=== PATIENT | male | born 1980 | race Caucasian/White ===

== ENCOUNTER → 2022-02-21 | Outpatient (REF) | payer OTHER | LOC: M SMT 17:25 | PROVIDERS: ATTEND Urology | DX: Z30.2 Encounter for sterilization (principal) ==

== ENCOUNTER 2022-03-08 09:30 | Day surgery (SDC) | payer OTHER ==
[~2022-03-08] VITALS: Ht 177.8 cm; Wt 85.9 kg
[~2022-03-08 09:30] MED LIST: ceFAZolin SOD 2 GM in IV 1 EA IV ONE
[2022-03-08] MEDS ORDERED: BUPIVACAINE HCL 0.25% 30ML VIAL As Ordered ONE (12:23)
[2022-03-08] MEDS ORDERED: LIDOCAINE 1% SDV 30ML VIAL As Ordered ONE (12:23)
[2022-03-08] MEDS ORDERED: MIDAZOLAM INJ 2MG/2ML VIAL (J2250 PER 1MG) As Ordered ONE (12:35)
[2022-03-08] MEDS ORDERED: propofoL 200 MG/20 ML VIAL As Ordered ONE (12:35)
[2022-03-08] MEDS ORDERED: LIDOCAINE 2% 100MG/5ML SDV (FOR ANES.) As Ordered ONE (12:35)
[2022-03-08 13:06] VITALS: BP 125/61
[2022-03-08] MEDS ORDERED: CEPH500C PO (13:08)
== END 2022-03-08 13:30 | disposition home or self-care (01) ==
LOC: M SDC 09:30
PROVIDERS: ATTEND Urology
DX: Z30.2 Encounter for sterilization (principal)
CPT/HCPCS: 55250; 88302; J0690; J2250

== ENCOUNTER → 2022-04-26 | Outpatient (REF) | payer OTHER ==
[~2022-04-26] MED LIST changes: +CEPH500C PO; -ceFAZolin SOD 2 GM in IV 1 EA IV ONE
[2022-04-26 10:03] LABS: SEMEN APPEARANCE OPAQUE (OPAQUE)
[2022-04-26 10:04] LABS: SEMEN VISCOSITY LIQUID (LIQUID); SEMEN VOLUME 1.2 ml (2.0-5.0); SEMEN pH 8.5 (7.0-8.0); WBC CONCENTRATION >1 M/ml (<=1 M/ml)
== END ==
LOC: M SMT 09:48
PROVIDERS: ATTEND Urology
DX: Z31.42 Aftercare following sterilization reversal (principal)

== ENCOUNTER 2024-04-28 16:35 | Inpatient (IN) | payer OTHER ==
[~2024-04-28] VITALS: Ht 177.8 cm; Wt 80.1 kg
[2024-04-28] MEDS ORDERED: HYDR1CAP25 PO (17:02)
[2024-04-28] MEDS ORDERED: SERT50TA29 PO (17:02)
[2024-04-28 18:07] LABS: HEMATOCRIT 43.3 % (42.0-52.0); HEMOGLOBIN 14.5 g/dl (13.5-17.5); MEAN CORPUSCULAR HEMOGLOBIN 31.5 pg (27.0-33.0); MEAN CORPUSCULAR HGB CONC 33.5 g/dl (32.0-36.5); MEAN CORPUSCULAR VOLUME 93.9 fl (80.0-96.0); PLATELET COUNT, AUTOMATED 339 10^3/uL (150-450); RED BLOOD COUNT 4.61 10^6/uL (4.30-6.10); WHITE BLOOD COUNT 7.6 10^3/uL (4.0-10.0)
[2024-04-28 18:12] LABS: SALICYLATE LEVEL < 3.0 MG/DL (<30)
[2024-04-28 18:14] LABS: ETHYL ALCOHOL (ETHANOL) < 0.003 % (0.000-0.010)
[2024-04-28 18:16] LABS: ALKALINE PHOSPHATASE 66 U/L (46-116); ALT/SGPT 35 U/L (7.0-40); AST/SGOT 14 U/L (<34); BILIRUBIN,DIRECT 0.1 MG/DL (<0.4); BILIRUBIN,TOTAL 0.3 MG/DL (0.3-1.2); BLOOD UREA NITROGEN 14 MG/DL (9-23); CALCIUM LEVEL 9.6 MG/DL (8.5-10.1); CARBON DIOXIDE LEVEL 29 MMOL/L (20-31); CHLORIDE LEVEL 106 MMOL/L (98-107); GLOMERULAR FILTRATION RATE > 60.0 (>60); GLUCOSE, FASTING 102 MG/DL (60-100); POTASSIUM SERUM 4.3 MMOL/L (3.5-5.1); SODIUM LEVEL 139 MMOL/L (136-145); THYROID STIMULATING HORMONE 0.648 uIU/ML (0.55-4.78); TOTAL PROTEIN 6.7 G/DL (5.7-8.2)
[2024-04-28] MEDS: SERTRALINE HCL 50 MG TAB PO SCH (21:47)
[2024-04-28 21:55] LABS: BARBITURATES URINE NEGATIVE (NEGATIVE); CANNABINOIDS URINE NEGATIVE (NEGATIVE); COCAINE METABOLITE URINE NEGATIVE (NEGATIVE); METHADONE URINE NEGATIVE (NEGATIVE); OPIATES URINE NEGATIVE (NEGATIVE); PHENCYCLIDINE URINE NEGATIVE (NEGATIVE)
[2024-04-28 21:56] LABS: AMPHETAMINES LEVEL URINE NEGATIVE (NEGATIVE); BENZODIAZEPINES URINE NEGATIVE (NEGATIVE)
[2024-04-29] MEDS ORDERED: HYDR1CAP25 PO (01:18)
[2024-04-29] MEDS ORDERED: MULT-40 PO (01:18)
[2024-04-29] MEDS ORDERED: HOME MED LIST COMPLETE! XX SCH (01:25)
[2024-04-29] MEDS ORDERED: ACETAMINOPHEN TAB 650MG DOSE (2X325MG) PO PRN (13:15)
[2024-04-29] MEDS ORDERED: OLANZapine ORAL DISINTEGRATING TAB 5MG PO PRN (13:15)
[2024-04-29] MEDS ORDERED: diphenhydrAMINE 25MG CAP PO PRN (13:15)
[2024-04-29] MEDS ORDERED: MAALOX 30 ML SUSP *UDC PO PRN (13:15)
[2024-04-29] MEDS ORDERED: IBUPROFEN 400MG TAB PO PRN (13:15)
[2024-04-29] MEDS ORDERED: MOM 30ML SUSPENSION UDC PO PRN (13:15)
[2024-04-29] MEDS: NICOTINE 14 MG/24 HR TRANSDERMAL TD SCH (13:41)
[2024-04-29 16:17] VITALS: BP 124/67; TEMP 98
[2024-04-29] MEDS: traZODone 50 MG TAB PO PRN (20:19)
[2024-04-29] MEDS: SERTRALINE HCL 50 MG TAB PO SCH (20:19)
[2024-04-30 06:38] VITALS: BP 114/67; TEMP 98.3; O2SAT 99
[2024-04-30 18:01] VITALS: BP 142/87; TEMP 97.9; O2SAT 99
[2024-05-01 06:18] VITALS: BP 122/67; TEMP 98.4; O2SAT 96
[2024-05-01 16:20] VITALS: BP 133/74; TEMP 98.4; O2SAT 99
[2024-05-02 06:04] VITALS: BP 135/66; TEMP 98.7; O2SAT 100
[2024-05-02 16:10] VITALS: BP 129/70; TEMP 98.1; O2SAT 100
[2024-05-03 06:03] VITALS: BP 134/62; TEMP 98.1; O2SAT 99
[2024-05-03 16:54] VITALS: BP 137/73; TEMP 98.3; O2SAT 98
[2024-05-04 05:55] VITALS: BP 134/80; TEMP 97.9
[2024-05-04 18:44] VITALS: BP 141/67; TEMP 99
[2024-05-05 06:32] VITALS: BP 136/78; TEMP 98.1; O2SAT 97
[2024-05-05] MEDS ORDERED: TRAZ-252 PO (14:23)
[2024-05-05] MEDS ORDERED: ABIL1TAB11 PO (14:23)
== END 2024-05-06 02:30 | DRG 882 ==
LOC: M ED 16:35 → M ED INP 04-29 13:15 → M PSY 04-29 16:15
PROVIDERS: ADMIT Student in an Organized Health Care Education/Training Program; ATTEND Student in an Organized Health Care Education/Training Program
DX: F43.10 Post-traumatic stress disorder, unspecified (principal); F10.10 Alcohol abuse, uncomplicated; F29 Unspecified psychosis not due to a substance or known physiological condition; Z79.899 Other long term (current) drug therapy; Z91.82 Personal history of military deployment